=== PATIENT | male | born 1975 | race African-American/Black ===

== ENCOUNTER 2018-09-06 10:42 | Emergency (ER) | payer MEDICAID ==
--- NOTE | 2018-09-06 12:47 | Diagnostic Imaging Report ---
Testicular/scrotal ultrasound HISTORY: Pain, swelling Exam the right side demonstrates a large hydrocele. The right testis measures 2.6 x 3.7 x 4.1 cm. Several sonolucent cystic foci noted. The largest measures 5 mm. Normal testicular vascular flow. The right epididymis is not clearly outlined. The exam the left side demonstrates a large hydrocele. The testis measures 3.1 x 2.3 x 3.7 cm. Several sonolucent cystic foci are seen. The largest measures 5 mm. The left epididymis is not clearly outlined. IMPRESSION: 1. Large bilateral hydroceles 2. Subcentimeter sonolucent cystic foci noted within the testes bilaterally. Finding of uncertain yet doubtful significance. Clinical correlation is needed. A follow-up exam in 3 months recommended for monitoring.
--- NOTE | 2018-09-06 16:07 | ED Physician Chart ---
ED Chief Complaint/HPI - Patient Information Date Seen:: 09/06/18 Time Seen:: 11:00 Chief Complaint:: Scrotal Pain History of Present Illness:: onset x 2 years of intermittent scrotal pain and swelling, worse x the past one week; pt denies trauma, LOC, AMS, ALOC, S/T, H/As, neck pain, cough, C/P, SOB, Abd. Pain, A/N/V/D/C, fever, chills, bleeding, penile discharge, or urinary s/s ; pt's last tetanus shot: < 5 years; UTD Allergies:: Allergies Allergy/AdvReac Type Severity Reaction Status Date / Time No Known Allergies Allergy Verified 09/06/18 11:01 Vitals:: Vital Signs - 8 hr 09/06/18 11:01 Temp 98.7 F HR 71 RR 16 BP 153/97 O2 Sat % 97 Historian:: Patient Review:: Nurse's Note Reviewed ED Review of Systems - Review of Systems General/Constitutional: No fever, No chills, No weight loss, No weakness, No diaphoresis, No edema, No loss of appetite Skin: No skin lesions, No rash, No bruising Head: No headache, No light-headedness Eyes: No loss of vision, No pain, No diplopia ENT: No earache, No nasal drainage, No sore throat, No tinnitus Neck: No neck pain, No swelling, No thyromegaly, No stiffness, No mass noted Cardio Vascular: No chest pain, No palpitations, No PND, No orthopnea, No edema Pulmonary: No SOB, No cough, No sputum, No wheezing GI: No nausea, No vomiting, No diarrhea, No pain, No melena, No hematochezia, No constipation, No hematemesis G/U: No dysuria, No frequency, No hematuria, No nacturia Musculoskeletal: No bone or joint pain, No back pain, No muscle pain Endocrine: No polyuria, No polydipsia Psychiatric: No prior psych history, No depression, No anxiety, No suicidal ideation, No homicidal ideation, No auditory hallucination, No visual hallucination Hematopoietic: No bruising, No lymphadenopathy Allergic/Immuno: No urticaria, No angioedema Neurological: No syncope, No focal symptoms, No weakness, No paresthesia, No headache, No seizure, No dizziness, No confusion, No vertigo ED Past Medical History - Past Medical History Obtainable: Yes Past Medical History: No significant medical hx Family History: HTN Social History: Non Smoker, No Alcohol, No Drug Use, Single Surgical History: None Psychiatricy History: None Medication: Reviewed Family Medical History - Family Member Mother History Unknown: Yes ED Physical Exam - Physical Examination General/Constitutional: Awake, Well-developed, well-nourished, Alert, No distress, GCS 15, Non-toxic appearing, Ambulatory Head: Atraumatic Eyes: Lids, conjuctiva normal, PERRL, EOMI Skin: Nl inspection, No rash, No skin lesions, No ecchymosis, Well hydrated, No lymphadenopathy ENMT: External ears, nose nl, TM canals nl, Nasal exam nl, Lips, teeth, gums nl , Oropharynx nl, Tonsils nl Neck: Nontender, Full ROM w/o pain, No JVD, No nuchal rigidity, No bruit, No mass, No stridor Other Neck comments:: supple; no meningeal signs; no cervical tenderness; no bruits Respiratory: Nl effort/Exclusion, Clear to Auscultation, No Wheeze/Rhonchi/Rales Cardio Vascular: RRR, No murmur, gallop, rubs, NL S1 S2, Carotid/Femoral/Distal pulses equal bilaterally GI: No tenderness/rebounding/guarding, No organomegaly, No hernia, Normal BS's, Nondistended, No mass/bruits, No McBurney tenderness, Rectum exam nl Other GI comments:: no pulsatile masses : No CVA tenderness, NL external genitalia, No discharge Other comments:: + Scrotal Swelling; + Hydroceles; + Epididymus tenderness; good NV functions Extremities: No tenderness or effusion, Full ROM, normal strength in all extremities, No edema, Normal digits & nails Neuro/Psych: Alert/oriented, DTR's symmetric, Normal sensory exam, Normal motor strength, Judgement/insight normal, Mood normal, Normal gait, No focal deficits Misc: Normal back, No paraspinal tenderness ED Labs/Radiology/EKG Results - Radiology Results Comments:: U/S: + Bilateral Hydroceles; + Cystic Foci within Testes; no Testicular Torsion ED Septic Shock - . Is Septic Shock (SBP<90, OR Lactate>4 mmol\L) present?: No - <6hrs of presentation: Vital Signs: Vital Signs - 8 hr 09/06/18 11:01 Temp 98.7 F HR 71 RR 16 BP 153/97 O2 Sat % 97 ED Reassessment (Disposition) - Reassessment Reassessment:: pt is asymptomatic upon discharge Reassessment Condition:: Improved - Diagnosis Diagnosis:: Dx: Scrotal Pain; Scrotal Swelling; Hydroceles; Testicular Cysts; Epididymitis - Aftercare/Follow up Instructions Aftercare/Follow-Up Instructions:: Counseled pt regarding lab results/diagnosis & need follow up, Refer to Discharge Instructions, Counseled pt & family regarding lab results/diagnosis & need follow up Medication Prescribed:: Rx: Doxycycline 100mg po bid x 10 days; Tylenol 500mg po qid prn pain/fever; Scrotal Care Instructions - Patient Disposition Discharge/Transfer:: Home Condition at Disposition:: Stable, Improved (RTER prn if existing s/s reoccur and/or get worse and/or any other new s/s occur; ACIs given for all above Dx; Refer to Urologist/Mat Weaver [facility]; F/U with PMD in one day or prn; RTER prn if concerned)
== END 2018-09-06 13:02 | disposition home or self-care (01) ==
LOC: ER 10:42
DX: N43.3 Hydrocele, unspecified (principal); N44.2 Benign cyst of testis; N45.1 Epididymitis
CPT/HCPCS: 76870-TC; Z7502